=== PATIENT | female | born 1935 | race Caucasian/White ===

== ENCOUNTER 2016-10-28 09:35 | Day surgery (SDC) | payer MEDICARE, BC ==
--- NOTE | 2016-10-27 13:19 | HISTORY AND PHYSICAL E ---
History and Physical NAME: ZACHARY OVALLE : 1935 AGE: 81Y ADMITTED: 10/28/2016 ROOM: CHIEF COMPLAINT: Dysphagia, weight loss. An 81-year-old female presents with dysphagia, weight loss, upper abdominal pain. SOCIAL HISTORY: The patient is . She does not smoke, does not drink. She did have an upper scope in 2010. SURGERIES: Appendectomy, cholecystectomy, spinal fusion C5-C6, surgery on left knee, cataracts. REVIEW OF SYSTEMS: HEENT: Cataracts bilaterally. Respiratory: Shortness of breath. Cardiac: Hypertension. Endocrine: Hypothyroid. GI: Dysphagia and reflux, abdominal pain. Oncology/Hematology: Negative. Musculoskeletal: Degenerative joint disease. FAMILY HISTORY: Father ; had heart disease. Mom had diabetes, cardiac disease. EXAMINATION: Pleasant 81-year-old female. Blood pressure 150/80, pulse 80, respirations 18, temperature 98. Weight 167. HEENT: Normal. Abdomen soft. Neurologic exam negative. MEDICATIONS: Aspirin, Cathleen, Tylenol. Micardis, hydrochlorothiazide, fish oil, pantoprazole. CONCLUSION: Dysphagia. PLAN: Upper scope. Reviewing records shows she did have colonoscopy in 2010. Cecal polyp hyperplastic. Patient presented at this time regarding dysphagia. DICTATING PHYSICIAN: HANNAH MCLAUGHLIN M.D. [id number] Y#: [id number] ID: [id number] JOB#: [id number] ACCT: [id number] cc:HANNAH MCLAUGHLIN M.D. >
[~2016-10-28 09:35] MED LIST: EPINEPHRINE INJ 1 MG/10 ML DISP.SYRIN ONE; FENTANYL CITRATE INJ/PF 100 MCG/2 ML AMPUL ONE; FLUMAZENIL INJ 0.5 MG/5 ML VIAL IV ONE; GLYCOPYRROLATE INJ 0.4 MG/2 ML VIAL ONE; MIDAZOLAM 2 MG/2 ML INJ ONE; NALOXONE HCL INJ/PF 0.4 MG/1 ML SDV ONE; ONDANSETRON HCL INJ/PF 4 MG/2 ML SDV ONE
[2016-10-28 11:26] LABS: IRON 57.5 ug/dL (37-170)
[2016-10-28 11:38] LABS: ABSOLUTE BASOPHILS # (AUTO) 0.1 10^3/uL (0.0-0.2); ABSOLUTE EOSINOPHILS # (AUTO) 0.4 10^3/uL (0.0-0.6); ABSOLUTE LYMPHOCYTES (AUTO) 1.3 10^3/uL (0.5-4.7); ABSOLUTE MONOCYTES (AUTO) 0.6 10^3/uL (0.1-1.4); ABSOLUTE NEUT (AUTO) 5.9 10^3/uL (1.7-8.2); BASOPHILS % (AUTO) 0.6 % (0-2); EOSINOPHILS % (AUTO) 5.4 % (0-6); HEMOGLOBIN 11.5 g/dL (12.0-15.5); HGB HCT DIFFERENCE 1.5; LYMPHOCYTES % (AUTO) 15.6 % (13-45); MEAN CORPUSCULAR HEMOGLOBIN 30.6 pg (27.0-33.4); MEAN CORPUSCULAR HGB CONC 34.7 g/dL (32.0-36.0); MEAN CORPUSCULAR VOLUME 88 fl (80-97); MONOCYTES % (AUTO) 6.7 % (3-13); RED BLOOD COUNT 3.74 10^6/uL (3.72-5.28); RED CELL DISTRIBUTION WIDTH 12.7 % (11.5-14.0); SEGMENTED NEUTROPHILS % (AUTO) 71.7 % (42-78); WHITE BLOOD COUNT 8.2 10^3/uL (4.0-10.5)
[2016-10-28 12:00] VITALS: BP 130/47
[2016-10-28 12:18] LABS: ERYTHROCYTE SEDIMENTATION RATE 21 mm/hr (0-30)
[2016-10-28 12:43] LABS: FERRITIN 33.2 ng/mL (11.1-264.0)
--- NOTE | 2016-10-28 15:04 | DISCHARGE SUMMARY E ---
Discharge Summary NAME: ZACHARY OVALLE : 1935 AGE: 81Y ADMITTED: 10/28/2016 DISCHARGED: 10/28/2016 PROCEDURE: EGD, biopsy. HISTORY: The patient is known to me. She did have a colonoscopy showing benign polyps, no evidence of malignancy. She presented now with dysphagia and reflux burning in her throat. She is 81 and complaining of dysphagia and weight loss, upper abdominal pain. Does not smoke. The patient did have a colonoscopy in 2010 shows benign hypoplastic polyp. DISCHARGE PLAN: Continue pantoprazole, Protonix. Hold aspirin 5 days. Baseline CBC, iron and B12 and ferritin. The patient is to see us in the office in the next few days. DICTATING PHYSICIAN: HANNAH MCLAUGHLIN M.D. [id number] PHY#: [id number] ID: [id number] JOB#: [id number] ACCT: [id number] cc:MERY PADRON MAHMOUD M.D. >
--- NOTE | 2016-10-28 15:06 | OPERATIVE REPORT E ---
Operative Report NAME: ZACHARY OVALLE : 1935 AGE: 81Y DATE OF SURGERY: 10/28/2016 ROOM: PREOPERATIVE DIAGNOSES: 1. Dysphagia. 2. Gastroesophageal reflux disease. POSTOPERATIVE DIAGNOSES: 1. Mild esophagitis. 2. Mild gastritis. 3. Mild duodenitis. 4. No stricture, no cancer. PROCEDURE: Esophagoscopy, gastroscopy, duodenoscopy. SURGEON: HANNAH MCLAUGHLIN M.D. ANESTHESIA: Versed 2 mg and Fentanyl 25 mcg. TISSUE REMOVED OR ALTERED: Gastric biopsy for H. pylori. DESCRIPTION OF PROCEDURE: The baby scope was passed under guided vision with no difficulties. Junction at 36 cm, no stricture, no hernia, no cancer. Mild esophagitis. Gastroscopy: Some scarring in the antrum, mild erythema, mild gastritis. No ulcers. Biopsy obtained for H. pylori, nice clotting. Duodenoscopy: The bulb shows mild duodenitis, no ulcers, descending duodenum normal. CONCLUSIONS: 1. No ulcers, no cancer. 2. Mild esophagitis. 3. Mild gastritis. 4. Mild duodenitis. 5. GE junction at 35 cm. PLAN: 1. Hold aspirin for 5 days. 2. Awaiting biopsy results. 3. Continue PPI. 4. Assurance. 5. The patient is to see us in the office in the next few days. 6. Continue pantoprazole and Tylenol No. 3. 7. Patient to have baseline CBC. We will check, her B12 level, iron and ferritin. DICTATING PHYSICIAN: HANNAH MCLAUGHLIN M.D. [id number] PHY#: [id number] ID: [id number] JOB#: [id number] ACCT: [id number] cc:MERY PADRON, HANNAH Bourne >
== END 2016-10-28 11:50 | disposition home or self-care (01) ==
LOC: END 09:35
PROVIDERS: ATTEND Specialist
PROC: 0DB68ZX Excision of Stomach, Via Natural or Artificial Opening Endoscopic, Diagnostic (ICD-10-PCS; principal; 2016-10-28 10:00)
DX: K31.9 Disease of stomach and duodenum, unspecified (principal); K21.0 Gastro-esophageal reflux disease with esophagitis; D50.9 Iron deficiency anemia, unspecified; I10 Essential (primary) hypertension; E03.9 Hypothyroidism, unspecified; M19.90 Unspecified osteoarthritis, unspecified site; R06.02 Shortness of breath; R63.4 Abnormal weight loss; Z79.899 Other long term (current) drug therapy; Z79.82 Long term (current) use of aspirin; Z68.30 Body mass index [BMI] 30.0-30.9, adult
CPT/HCPCS: 43239; 36415; 82607; 82728; 83540; 85025; 85652; 88342 ×2; 88305 ×2; J2250; J3010; J2405; J0171; J2310; J3490

== ENCOUNTER 2017-03-31 13:41 | Emergency (ER) | payer MEDICARE, BC ==
--- NOTE | 2017-03-31 15:29 | RADIOLOGY REPORT (SQ) ---
EXAM DESCRIPTION: CHEST PA/LAT COMPLETED DATE/TIME: 03/31/2017 3:21 pm REASON FOR STUDY: fall/pain COMPARISON: 01/22/2012. EXAM PARAMETERS: NUMBER OF VIEWS: two views TECHNIQUE: Digital Frontal and Lateral radiographic views of the chest acquired. RADIATION DOSE: NA LIMITATIONS: none FINDINGS: LUNGS AND PLEURA: No opacities, masses or pneumothorax. No pleural effusion. MEDIASTINUM AND HILAR STRUCTURES: No masses or contour abnormalities. HEART AND VASCULAR STRUCTURES: Heart normal size. No evidence for failure. BONES: No acute findings. Degenerative changes in the spine and shoulders. HARDWARE: Hardware in the cervical spine and right shoulder. OTHER: No other significant finding. IMPRESSION: NO SIGNIFICANT RADIOGRAPHIC FINDING IN THE CHEST. TECHNICAL DOCUMENTATION: JOB ID: [id number] [employer] All Rights Reserved
--- NOTE | 2017-03-31 15:30 | RADIOLOGY REPORT (SQ) ---
EXAM DESCRIPTION: TIBIA FIBULA LEFT COMPLETED DATE/TIME: 03/31/2017 3:21 pm REASON FOR STUDY: fall/pain COMPARISON: None. NUMBER OF VIEWS: Two views. TECHNIQUE: Two radiographic images acquired of the left tibia and fibula to include the knee and ank le in at least one projection. LIMITATIONS: None. FINDINGS: MINERALIZATION: Normal. BONES: No acute fracture or dislocation. No worrisome bone lesions. SOFT TISSUES: No obvious swelling or foreign body. OTHER: No other significant finding. IMPRESSION: NEGATIVE STUDY OF THE LEFT TIBIA AND FIBULA. NO RADIOGRAPHIC EVIDENCE OF ACUTE INJURY. TECHNICAL DOCUMENTATION: JOB ID: [id number] [employer]- All Rights Reserved
--- NOTE | 2017-03-31 15:44 | ER Document Report ---
ED General - General Chief Complaint: Rib Pain Stated Complaint: FALL Time Seen by Provider: 03/31/17 14:54 Mode of Arrival: Ambulatory Information source: Patient Notes: Patient had a fall yesterday in which she hit her left chest on a bench. She also hit her left leg on the bench. She states she lost her balance walking down some steps. Constant. It is worse with movement and better with rest. It is sharp. It does radiate across her chest. The pain is moderate to severe. No shortness of breath. No abdominal pain. No vomiting or diarrhea. No loss of consciousness TRAVEL OUTSIDE OF THE [place] IN LAST 30 DAYS: No COUNTRY TRAVELED TO/FROM: [facility] - Related Data Allergies/Adverse Reactions: rofecoxib [From Vioxx] Allergy (Mild, Verified 03/31/17 14:40) Nausea Past Medical History - General Information source: Patient - Social History Smoking Status: Never Smoker Chew tobacco use (# tins/day): No Frequency of alcohol use: None Drug Abuse: None Family History: Reviewed & Not Pertinent Patient has suicidal ideation: No Patient has homicidal ideation: No - Past Medical History Cardiac Medical History: Reports: Hx Hypertension Denies: Hx Coronary Artery Disease, Hx Heart Attack Pulmonary Medical History: Reports: Hx Asthma - SOB ON EXERTION Denies: Hx Bronchitis, Hx COPD, Hx Pneumonia Neurological Medical History: Denies: Hx Cerebrovascular Accident, Hx Seizures Renal/ Medical History: Denies: Hx Peritoneal Dialysis Musculoskeltal Medical History: Reports Hx Arthritis Past Surgical History: Reports: Hx Appendectomy, Hx Cholecystectomy, Hx Hysterectomy, Hx Orthopedic Surgery - Immunizations Immunizations up to date: Yes Hx Diphtheria, Pertussis, Tetanus Vaccination: Yes Review of Systems - Review of Systems Constitutional: denies: Chills, Fever Cardiovascular: Chest pain. denies: Palpitations Respiratory: denies: Cough, Short of breath Gastrointestinal: denies: Abdominal pain, Vomiting -: Yes All other systems reviewed and negative Physical Exam - Vital signs Vitals: Temp Pulse Resp BP Pulse Ox 97.5 F 57 L 16 124/62 93 03/31/17 14:00 03/31/17 14:00 03/31/17 14:00 03/31/17 14:00 03/31/17 14:00 Interpretation: Bradycardic - General General appearance: Appears well, Alert - HEENT Head: Normocephalic, Atraumatic Eyes: Normal Pupils: PERRL - Respiratory Respiratory status: No respiratory distress Chest status: Tender - left chest wall tender. no crepitus Breath sounds: Normal Chest palpation: No: Flail segment, [place] frothy sputum - Cardiovascular Rhythm: Regular Heart sounds: Normal auscultation Murmur: No - Abdominal Inspection: Normal Distension: No distension Bowel sounds: Normal Tenderness: Nontender Organomegaly: No organomegaly - Back Back: Normal, Nontender - Extremities General upper extremity: Normal inspection, Nontender, Normal color, Normal ROM , Normal temperature General lower extremity: Tender - left leg with tender ecchysmosis, Normal ROM, Normal temperature, Normal weight bearing. No: Octavio's sign - Neurological Neuro grossly intact: Yes Cognition: Normal Orientation: AAOx4 Emilie Coma Scale Eye Opening: Spontaneous Emilie Coma Scale Verbal: Oriented Raymond Coma Scale Motor: Obeys Commands Raymond Coma Scale Total: 15 Speech: Normal Motor strength normal: LUE, RUE, LLE, RLE Sensory: Normal - Psychological Associated symptoms: Normal affect, Normal mood - Skin Skin Temperature: Warm Skin Moisture: Dry Skin Color: Normal Course - Vital Signs Vital signs: Temp Pulse Resp BP Pulse Ox 97.5 F 57 L 16 124/62 93 03/31/17 14:00 03/31/17 14:00 03/31/17 14:00 03/31/17 14:00 03/31/17 14:00 - Diagnostic Test Radiology reviewed: Image reviewed, Reports reviewed - Patient has negative x- rays of the chest and left leg. Discharge - Discharge Clinical Impression: Fall, Chest wall contusion, Contusion of left leg Condition: Stable Disposition: HOME, SELF-CARE Instructions: Chest Wall Pain ([facility]), Contusion ([facility]) Additional Instructions: Please follow-up with your primary care physician as soon as possible Prescriptions: Hydrocodone/Acetaminophen [Hillister 5-325 mg Tablet] 1 tab PO Q8 PRN #10 tablet PRN Reason:
[2017-03-31 16:04] VITALS: BP 113/57
== END 2017-03-31 16:04 | disposition home or self-care (01) ==
LOC: ER 13:41
DX: S20.219A Contusion of unspecified front wall of thorax, initial encounter (principal); S80.12XA Contusion of left lower leg, initial encounter; W10.9XXA Fall (on) (from) unspecified stairs and steps, initial encounter; I10 Essential (primary) hypertension; Z90.49 Acquired absence of other specified parts of digestive tract; Z90.710 Acquired absence of both cervix and uterus
CPT/HCPCS: 71020; 99283

== ENCOUNTER → 2017-06-18 | Outpatient (CLI) | payer MEDICARE, BC ==
--- NOTE | 2017-06-18 09:09 | WOMENS IMAGING REPORT ---
EXAM DESCRIPTION: BONE DENSITY HIP/SPINE COMPLETED DATE/TIME: 06/18/2017 8:49 am REASON FOR STUDY: MENOPAUSAL STATE; Z78.0 Z12.31 ENCNTR SCREEN MAMMOGRAM FOR MALIGNANT NEOPLASM OF ZARI Z78.0 ASYMPTOMATIC MENOPAUSAL STATE COMPARISON: 05/31/2013. TECHNIQUE: Dual-Energy X-ray Absorptiometry (DEXA) of the AP Spine and Hip. LIMITATIONS: None. FINDINGS: LUMBAR SPINE: The bone mineral density (BMD) measured from L1-L4 in the AP projection correlates with a T-score of 1.7, which is normal as defined by the World Health Organization. HIP: The bone mineral density (BMD) measured in the left hip correlates with a T-score of -1.3, which is o steopenia as defined by the World Health Organization. IMPRESSION: 1. LUMBAR SPINE: NORMAL. 2. HIP: OSTEOPENIA. COMMENT: The World Health Organization defines low BMD as follows: T-score: Normal: Greater than -1.0 Osteopenia: Between -1.0 and -2.5 Osteoporosis: Less than -2.5 without fractures Established osteoporosis: Less than -2.5 with fractures In general, you may wish to consider: Diagnosis Treatment Follow-up DEXA Normal BMD Prevention 2-3 years Osteopenia Prevention/Therapy 1-2 years Osteoporosis Therapy Yearly TECHNICAL DOCUMENTATION: JOB ID: [id number]- All Rights Reserved
--- NOTE | 2017-06-18 10:31 | WOMENS IMAGING REPORT ---
EXAM DESCRIPTION: BILAT SCREENING MAMMO W/CAD COMPLETED DATE/TIME: 06/18/2017 8:49 am REASON FOR STUDY: ROUTINE SCREENING; Z12.31 Z12.31 ENCNTR SCREEN MAMMOGRAM FOR MALIGNANT NEOPLASM O F ZARI Z78.0 ASYMPTOMATIC MENOPAUSAL STATE COMPARISON: 06/16/2016 and 06/14/2015. TECHNIQUE: Standard craniocaudal and mediolateral oblique views of each breast recorded using digita l acquisition. LIMITATIONS: None. FINDINGS: No masses, calcifications or architectural distortion. No areas of suspicion. Read with the assistance of CAD. .[facility] - R2 Cenova Version 1.3 .[facility] - R2 Cenova Version 1.3 .[facility] - R2 Cenova Version 2.4 .[facility] - R2 Cenova Version 2.4 .[facility] - R2 Laboratory Cureman Version 9.2 IMPRESSION: NORMAL MAMMOGRAM. BIRADS 1. BREAST DENSITY: b. There are scattered areas of fibroglandular density. BIRAD: 1 NEGATIVE RECOMMENDATION: ROUTINE SCREENING COMMENT: The patient has been notified of the results by letter per SA requirements. Additional no tification policies are in place for contacting patient with suspicious or incomplete findings. Quality ID #[id number]: The [employer] recommends an annual screening mammogram for women aged 40 years or over. This facility utilizes a reminder system to ensure that all patients receive reminder letters, and/or direct phone calls for appointments. This includes reminders for routine scr eening mammograms, diagnostic mammograms, or other Breast Imaging Interventions when appropriate. Th is patient will be placed in the appropriate reminder system. The [employer] (ACR) has developed recommendations for screening MRI of the breast s in certain patient populations, to be used in conjunction with mammography. Breast MRI surveillanc e may be appropriate for women with more than 20% lifetime risk of developing breast cancer as deter mined by genetic testing, significant family history of the disease, or history of mantle radiation f or Hodgkins Disease. ACR Practice Guidelines 2008. TECHNICAL DOCUMENTATION: FINDING NUMBER: (1) ASSESSMENT: (1) JOB ID: [id number] [employer]- All Rights Reserved
== END ==
LOC: WI 08:02
PROVIDERS: ATTEND Nurse Practitioner
DX: Z12.31 Encounter for screening mammogram for malignant neoplasm of breast (principal); Z78.0 Asymptomatic menopausal state; M85.88 Other specified disorders of bone density and structure, other site
CPT/HCPCS: 77080; G0202; 77067

== ENCOUNTER → 2017-11-04 | Outpatient (CLI) | payer MEDICARE, BC ==
--- NOTE | 2017-11-04 10:38 | RADIOLOGY REPORT (SQ) ---
EXAM DESCRIPTION: CT ABDOMEN WITH IV ORAL CONT COMPLETED DATE/TIME: 11/04/2017 8:57 am REASON FOR STUDY: LUQ PAIN (R10.12), ABD TENDERNESS LUQ (R10.812) R10.12 LEFT UPPER QUADRANT PAIN R 10.812 LEFT UPPER QUADRANT ABDOMINAL TENDERNESS COMPARISON: None. TECHNIQUE: CT scan of the abdomen performed with intravenous and with oral contrast using helical sc anning technique with dynamic intravenous contrast injection. Images reviewed with lung, soft tissue, and bone windows. Reconstructed coronal and sagittal MPR images reviewed. Delayed images for evaluat ion of the urinary system also acquired and evaluated. All images stored on PACS. All CT scanners at this facility use dose modulation, iterative reconstruc tion, and/or weight based dosing when appropriate to reduce radiation dose to as low as reasonably ac hievable (ALARA). [facility]: Dose Right [facility]: CareDose [facility]: Dose Right [facility]: Teradose 4D [facility]: [employer] CONTRAST TYPE AND DOSE: contrast/concentration: Isovue 370.00 mg/ml; Total Contrast Delivered: 78.0 ml; Total Saline Delivered: 67.0 ml RENAL FUNCTION: Creatinine 0.7 RADIATION DOSE: CT Rad equipment meets quality standard of care and radiation dose reduction techniq ues were employed. CTDIvol: 6.3 - 7.1 mGy. DLP: 427 mGy-cm. . LIMITATIONS: None. FINDINGS: LOWER CHEST: Cardiomegaly. LIVER: Normal size. No masses. No dilated ducts. SPLEEN: Normal size. No focal lesions. PANCREAS: Atrophy. GALLBLADDER: Surgically absent. ADRENAL GLANDS: Thickening left gland. No definitive mass. RIGHT KIDNEY AND URETER: No solid masses. No significant calcifications. No hydronephrosis or hyd roureter. LEFT KIDNEY AND URETER: Subcentimeter exophytic lesion upper pole too small to characterize. No sig nificant calcifications. No hydronephrosis or hydroureter. AORTA AND VESSELS: No aneurysm. RETROPERITONEUM: No retroperitoneal adenopathy, hemorrhage or masses. BOWEL AND PERITONEAL CAVITY: No masses or inflammatory changes. No free fluid or peritoneal masses. APPENDIX: Surgically absent. ABDOMINAL WALL: No masses. No hernias. BONES: No acute findings. OTHER: No other significant finding. IMPRESSION: No acute findings in the abdomen. TECHNICAL DOCUMENTATION: JOB ID: [id number] Quality ID # [id number]: Final reports with documentation of one or more dose reduction techniques (e.g., Au tomated exposure control, adjustment of the mA and/or kV according to patient size, use of iterative reconstruction technique) 2010 [employer]- All Rights Reserved Reading location - IP/workstation name: [email or web address]
== END ==
LOC: RAD 08:05
PROVIDERS: ATTEND Internal Medicine Gastroenterology
DX: R10.12 Left upper quadrant pain (principal); R10.812 Left upper quadrant abdominal tenderness
CPT/HCPCS: 74160; 82565

== ENCOUNTER → 2018-06-21 | Outpatient (CLI) | payer MEDICARE, BC ==
--- NOTE | 2018-06-21 15:46 | WOMENS IMAGING REPORT ---
EXAM DESCRIPTION: BILAT SCREENING MAMMO W/CAD COMPLETED DATE/TIME: 06/21/2018 2:58 pm REASON FOR STUDY: SCREENING MAMMO Z12.31 ENCNTR SCREEN MAMMOGRAM FOR MALIGNANT NEOPLASM OF ZARI COMPARISON: Multiple since 2008 TECHNIQUE: Standard craniocaudal and mediolateral oblique views of each breast recorded using digita l acquisition. LIMITATIONS: None. FINDINGS: No masses, calcifications or architectural distortion. No areas of suspicion. Read with the assistance of CAD. .[facility] - R2 Cenova Version 1.3 .[facility] - R2 Cenova Version 1.3 .[facility] - R2 Cenova Version 2.4 .[facility] - R2 Cenova Version 2.4 .[facility] - R2 Director Data Version 9.2 IMPRESSION: NORMAL MAMMOGRAM. BIRADS 1. BREAST DENSITY: b. There are scattered areas of fibroglandular density. BIRAD: 1 NEGATIVE RECOMMENDATION: ROUTINE SCREENING Please continue bilateral screening mammography/tomosynthesis in June 2019. COMMENT: The patient has been notified of the results by letter per SA requirements. Additional no tification policies are in place for contacting patient with suspicious or incomplete findings. Quality ID #225: The [employer] recommends an annual screening mammogram for women aged 40 years or over. This facility utilizes a reminder system to ensure that all patients receive reminder letters, and/or direct phone calls for appointments. This includes reminders for routine scr eening mammograms, diagnostic mammograms, or other Breast Imaging Interventions when appropriate. Th is patient will be placed in the appropriate reminder system. The [employer] (ACR) has developed recommendations for screening MRI of the breast s in certain patient populations, to be used in conjunction with mammography. Breast MRI surveillanc e may be appropriate for women with more than 20% lifetime risk of developing breast cancer as deter mined by genetic testing, significant family history of the disease, or history of mantle radiation f or Hodgkins Disease. ACR Practice Guidelines 2008. TECHNICAL DOCUMENTATION: FINDING NUMBER: (1) ASSESSMENT: (1) JOB ID: [id number] [employer]- All Rights Reserved Reading location - IP/workstation name: [email or web address]
== END ==
LOC: WI 14:07
PROVIDERS: ATTEND Nurse Practitioner
DX: Z12.31 Encounter for screening mammogram for malignant neoplasm of breast (principal)
CPT/HCPCS: 77067

== ENCOUNTER → 2019-06-22 | Outpatient (CLI) | payer MEDICARE, BC ==
--- NOTE | 2019-06-22 13:42 | WOMENS IMAGING REPORT ---
EXAM DESCRIPTION: BONE DENSITY HIP/SPINE COMPLETED DATE/TIME: 06/22/2019 1:24 pm REASON FOR STUDY: Z78.0 BONE DENSITY Z78.0 ASYMPTOMATIC MENOPAUSAL STATE Z12.31 ENCNTR SCREEN MAMM OGRAM FOR MALIGNANT NEOPLASM OF ZARI COMPARISON: 2003, 2012, 2016 TECHNIQUE: Dual-Energy X-ray Absorptiometry (DEXA) of the AP Spine and Hip. LIMITATIONS: None. FINDINGS: LUMBAR SPINE: The bone mineral density (BMD) measured from L1-L4 in the AP projection correlates with a T-score of +1.7, which is normal as defined by the World Health Organization. BMD Change vs Baseline: No significant change since baseline assessment HIP: The bone mineral density (BMD) measured in the left total hip correlates with a T-score of -0.4, whic h is normal as defined by the World Health Organization. BMD Change vs Baseline: 14% decline in bone density since 2004, 9% decline in bone density since 7 10 year Fracture Risk Assessment: Major Osteoporotic Fracture: Not available. Hip Fracture: Not available. IMPRESSION: 1. LUMBAR SPINE WHO CLASSIFICATION: Normal 2. HIP WHO CLASSIFICATION: Normal OVERALL ASSESSMENT: WHO CLASSIFICATION: Normal COMMENT: The World Health Organization defines low BMD as follows: T-score: Normal: Greater than -1.0 Osteopenia: Between -1.0 and -2.5 Osteoporosis: Less than -2.5 without fractures Established osteoporosis: Less than -2.5 with fractures In general, you may wish to consider: Diagnosis Treatment Follow-up DEXA Normal BMD Prevention 2-3 years Osteopenia Prevention/Therapy 1-2 years Osteoporosis Therapy Yearly TECHNICAL DOCUMENTATION: JOB ID: [id number] [employer]- All Rights Reserved Reading location - IP/workstation name: [email or web address]
--- NOTE | 2019-06-22 13:45 | WOMENS IMAGING REPORT ---
EXAM DESCRIPTION: BILAT SCREENING MAMMO W/CAD COMPLETED DATE/TIME: 06/22/2019 1:24 pm REASON FOR STUDY: Z12.31 BILATERAL SCREENING MAMMOGRAM Z78.0 ASYMPTOMATIC MENOPAUSAL STATE Z12.31 ENCNTR SCREEN MAMMOGRAM FOR MALIGNANT NEOPLASM OF ZARI COMPARISON: [id number] EXAM PARAMETERS: Standard craniocaudal and mediolateral oblique views of each breast recorded using digital acquisition. Read with the assistance of CAD. .[facility] - [email or web address] Ignition Specialist Version 9.2 LIMITATIONS: None. FINDINGS: No suspicious masses, suspicious calcifications or architectural distortion. No areas of c oncern. IMPRESSION: Negative MAMMOGRAM. BIRADS 1 BREAST DENSITY: b. There are scattered areas of fibroglandular density. BIRAD: ASSESSMENT: 1 NEGATIVE RECOMMENDATION: ROUTINE SCREENING COMMENT: The patient has been notified of the results by letter per MQSA requirements. Additional no tification policies are in place for contacting patient with suspicious or incomplete findings. Quality ID #[id number]: The [employer] recommends an annual screening mammogram for women aged 40 years or over. This facility utilizes a reminder system to ensure that all patients receive reminder letters, and/or direct phone calls for appointments. This includes reminders for routine scr eening mammograms, diagnostic mammograms, or other Breast Imaging Interventions when appropriate. Th is patient will be placed in the appropriate reminder system. TECHNICAL DOCUMENTATION: FINDING NUMBER: (1) ASSESSMENT: (1) JOB ID: [id number] [employer]- All Rights Reserved Reading location - IP/workstation name: [email or web address]
== END ==
LOC: WI 12:40
PROVIDERS: ATTEND Nurse Practitioner
DX: Z12.31 Encounter for screening mammogram for malignant neoplasm of breast (principal); Z78.0 Asymptomatic menopausal state
CPT/HCPCS: 77067; 77080

== ENCOUNTER 2019-09-08 11:29 | Inpatient (IN) | payer MEDICARE, BC ==
[2019-09-08 11:48] LABS: ABSOLUTE EOSINOPHILS # (AUTO) 0.1 10^3/uL (0.0-0.6); ABSOLUTE LYMPHOCYTES (AUTO) 1.1 10^3/uL (0.5-4.7); ABSOLUTE NEUT (AUTO) 12.5 10^3/uL (1.7-8.2); BASOPHILS % (AUTO) 0.3 % (0-2); EOSINOPHILS % (AUTO) 0.4 % (0-6); HEMATOCRIT 39.2 % (36.0-47.0); HEMOGLOBIN 13.3 g/dL (12.0-15.5); LYMPHOCYTES % (AUTO) 7.7 % (13-45); MEAN CORPUSCULAR HEMOGLOBIN 30.1 pg (27.0-33.4); MEAN CORPUSCULAR HGB CONC 33.9 g/dL (32.0-36.0); MEAN CORPUSCULAR VOLUME 89 fl (80-97); MONOCYTES % (AUTO) 6.8 % (3-13); PLATELET COUNT 277 10^3/uL (150-450); RED BLOOD COUNT 4.41 10^6/uL (3.72-5.28); RED CELL DISTRIBUTION WIDTH 13.3 % (11.5-14.0); SEGMENTED NEUTROPHILS % (AUTO) 84.8 % (42-78); TOTAL CELLS COUNTED % (AUTO) 100 %; WHITE BLOOD COUNT 14.8 10^3/uL (4.0-10.5)
[2019-09-08 12:00] LABS: INTERNATIONAL RATION (INR) 0.88; PROTHROMBIN TIME 11.9 SEC (11.4-15.4)
[2019-09-08 12:17] LABS: ALBUMIN 4.1 g/dL (3.5-5.0); ALKALINE PHOSPHATASE 137 U/L (38-126); ANION GAP 10 (5-19); ASPARTATE AMINO TRANSFERASE 37 U/L (14-36); BILIRUBIN,TOTAL 0.4 mg/dL (0.2-1.3); BLOOD UREA NITROGEN 17 mg/dL (7-20); CALCIUM 9.2 mg/dL (8.4-10.2); CARBON DIOXIDE 30 mmol/L (22-30); CHLORIDE 88 mmol/L (98-107); GLUCOSE 156 mg/dL (75-110); POTASSIUM 3.6 mmol/L (3.6-5.0); TOTAL PROTEIN 7.2 g/dL (6.3-8.2)
--- NOTE | 2019-09-08 12:31 | RADIOLOGY REPORT (SQ) ---
EXAM DESCRIPTION: CHEST SINGLE VIEW COMPLETED DATE/TIME: 09/08/2019 12:17 pm REASON FOR STUDY: bed 17 sepsis protocol COMPARISON: PA and lateral views of the chest from 03/31/2017. EXAM PARAMETERS: NUMBER OF VIEWS: One view. TECHNIQUE: An AP view of the chest was obtained. RADIATION DOSE: NA LIMITATIONS: None. FINDINGS: LUNGS AND PLEURA: No consolidation, pleural effusion or pneumothorax. MEDIASTINUM AND HILAR STRUCTURES: No mediastinal or hilar contour abnormality. HEART AND VASCULAR STRUCTURES: The cardiac silhouette and pulmonary vasculature are within normal rodrigues its. BONES: No acute findings. HARDWARE: ACDF hardware and orthopedic screws in the proximal right humerus. OTHER: No other finding. IMPRESSION: No acute cardiopulmonary process. TECHNICAL DOCUMENTATION: JOB ID: [id number] 2010 [employer]- All Rights Reserved Reading location - IP/workstation name: [email or web address]
[2019-09-08 12:47] LABS: VENOUS BLOOD BASE EXCESS 2.6 mmol/L; VENOUS BLOOD HCO3 27.6 mmol/L (20-32); VENOUS BLOOD PCO2 43.9 mmHg (35-63); VENOUS BLOOD PH 7.42 (7.30-7.42)
[2019-09-08] MEDS ORDERED: NORMAL SALINE 1000 ML 1,000 ML IV ONE ×2 (13:24→16:04)
[2019-09-08 13:56] LABS: APPEARANCE,URINE SLIGHTLY-CLOUDY; BILIRUBIN,URINE NEGATIVE (NEGATIVE); COLOR,URINE YELLOW; GLUCOSE, URINE NEGATIVE (NEGATIVE); KETONES,URINE TRACE mg/dL (NEGATIVE); LEUKOCYTE ESTERASE,URINE NEGATIVE (NEGATIVE); NITRITE,URINE POSITIVE (NEGATIVE); PROTEIN,URINE NEGATIVE (NEGATIVE); URINE SPECIFIC GRAVITY 1.014; UROBILINOGEN,URINE NEGATIVE mg/dL (<2.0)
[2019-09-08] MEDS ORDERED: CEFTRIAXONE 1 GM/D5W RTU 50 ML IV ONE (16:04)
--- NOTE | 2019-09-08 16:25 | ER Document Report ---
ED General - General Chief Complaint: General Weakness Stated Complaint: FALL Time Seen by Provider: 09/08/19 15:15 Primary Care Provider: MERY PADRON FNP [Primary Care Provider] - Follow up as needed TRAVEL OUTSIDE OF THE [place] IN LAST 30 DAYS: No - HPI Notes: Patient is an 84-year-old female who presents to the emergency department for evaluation. She states that she has not been feeling well for the last several days. She is had a minimal cough. She has been feeling weak. She is been taking her regular medications as prescribed. She states that she was trying to call her doctor to schedule an appointment and she had a near syncopal episode. She called 911 for further evaluation. She denies any chest pain. She is had no shortness of breath. She does complain of some urinary frequency. No fevers or chills to her knowledge. She is had some lower back pain since a fall in May. She is been referred on to physical therapy, but complains, "no one has even taken an x-ray." She denies any bowel or bladder incontinence, no saddle anesthesia, no focal numbness or weakness. - Related Data Allergies/Adverse Reactions: rofecoxib [From Vioxx] Allergy (Mild, Verified 03/31/17 14:40) Nausea Home Medications: Aspirin 81 mg daily, multivitamin daily, Cathleen 180 mg daily, Tylenol 3 as needed for pain, HCTZ 25 mg daily, Synthroid 50 mcg daily Past Medical History - General Information source: Patient, Relative - Social History Smoking Status: Never Smoker Family History: Reviewed & Not Pertinent Patient has suicidal ideation: No Patient has homicidal ideation: No - Past Medical History Cardiac Medical History: Reports: Hx Hypertension Denies: Hx Coronary Artery Disease, Hx Heart Attack Pulmonary Medical History: Reports: Hx Asthma - SOB ON EXERTION Denies: Hx Bronchitis, Hx COPD, Hx Pneumonia Neurological Medical History: Denies: Hx Cerebrovascular Accident, Hx Seizures Endocrine Medical History: Reports: Hx Hypothyroidism Renal/ Medical History: Denies: Hx Peritoneal Dialysis GI Medical History: Reports: Hx Gastroesophageal Reflux Disease Musculoskeletal Medical History: Reports Hx Arthritis Past Surgical History: Reports: Hx Appendectomy, Hx Cholecystectomy, Hx Hysterectomy, Hx Orthopedic Surgery - Rotator cuff, Other - Bladder reconstruction, bilateral cataracts - Immunizations Immunizations up to date: Yes Hx Diphtheria, Pertussis, Tetanus Vaccination: Yes Review of Systems - Review of Systems Constitutional: See HPI Cardiovascular: See HPI Genitourinary: See HPI -: Yes All other systems reviewed and negative Physical Exam - Vital signs Vitals: Temp Resp BP Pulse Ox 98 F 16 113/71 98 09/08/19 11:48 09/08/19 11:48 09/08/19 11:48 09/08/19 11:48 - Notes Notes: Vital signs reviewed, please refer to chart. Head is normocephalic, atraumatic. Pupils equal round, reactive to light. Neck is supple without meningismus. Heart is irregularly irregular, heart rate ranges from 85-120. Lungs are clear to auscultation bilaterally. Abdomen is soft, nontender, normoactive bowel sounds throughout. Extremities without cyanosis, clubbing. Posterior calves are nontender. Peripheral pulses are equal. Skin is warm and dry. She does have some diffuse erythema on the posterior left forearm, that she attributes to a topical cream she was using to help rid of age spots. Patient is awake, alert, neurological exam is nonfocal. Examination of the spine is no midline tenderness or step-off. She has paraspinal musculature tenderness throughout the lumbar spine. She has plus 4 out of 5 bilateral lower extremity strength with mildly diminished but symmetrical patellar and Achilles reflexes. Sensation is intact. Course - Re-evaluation Re-evalutation: 09/08/19 16:24 Patient presents to the emergency department for evaluation. She is placed on a monitor worker and had laboratory investigations as ordered. She is tachycardic, and her blood pressure is borderline low. She is given IV fluid resuscitation. She has a leukocytosis and findings consistent with a urinary tract infection. Her heart rhythm reveals atrial fibrillation/flutter. Her blood pressure, however, is borderline. I am concerned that this rapid response is more secondary to sepsis. I am not inclined to lower her heart rate at this time. She is given IV Rocephin. At her request, I did order x-rays of the lumbar spine. Plan will be to admit pending cultures, evaluation of her heart. Patient is stable at this time, we will continue to monitor. 09/08/19 17:53 Patient's heart rate varied between the 60s to the 120s, but her blood pressure remained stable. I did order a CT scan of her back which showed extensive arthritic changes, lumbar stenosis, but no acute fracture. Again she does have sepsis criteria, UTI, and new onset atrial fibrillation. I spoke with Dr. Yuan, he will admit the patient for further care. - Vital Signs Vital signs: Temp Pulse Resp BP Pulse Ox 98 F 25 H 124/64 100 09/08/19 11:48 09/08/19 15:01 09/08/19 15:01 09/08/19 15:01 - Laboratory Result Diagrams: 09/08/19 11:05 09/08/19 11:05 Laboratory results interpreted by me: 09/08/19 09/08/19 09/08/19 11:05 11:05 11:50 WBC 14.8 H Lymph % (Auto) 7.7 L Absolute Neuts (auto) 12.5 H Seg Neutrophils % 84.8 H Sodium 127.7 L Chloride 88 L Glucose 156 H Lactic Acid 2.4 H AST 37 H Alkaline Phosphatase 137 H Urine Ketones Urine Nitrite Urine Ascorbic Acid 09/08/19 11:50 WBC Lymph % (Auto) Absolute Neuts (auto) Seg Neutrophils % Sodium Chloride Glucose Lactic Acid AST Alkaline Phosphatase Urine Ketones TRACE H Urine Nitrite POSITIVE H Urine Ascorbic Acid 40 H - Diagnostic Test Radiology reviewed: Reports reviewed Radiology results interpreted by me: 09/08/19 17:54 Chest X-Ray 09/08/19 11:35 IMPRESSION: No acute cardiopulmonary process. 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 There is no acute fracture or malalignment of the lumbar spine. - EKG Interpretation by Me Additional EKG results interpreted by me: 09/08/19 16:26 Atrial flutter with a rate of 119 bpm. Normal axis and intervals. Nonspecific ST changes, but no acute changes concerning for ischemia or infarction. This is compared to prior EKG in patient's possession performed July 27, 2019 with significant change. Discharge - Discharge Clinical Impression: Atrial fibrillation and flutter, Hyponatremia Urinary tract infection Qualifiers: Urinary tract infection type: site unspecified Hematuria presence: without hematuria Qualified Code(s): N39.0 - Urinary tract infection, site not specified Sepsis Qualifiers: Sepsis type: sepsis due to unspecified organism Sepsis acute organ dysfunction status: without acute organ dysfunction Qualified Code(s): A41.9 - Sepsis, unspecified organism Condition: Stable Disposition: ADMITTED INPATIENT Admitting Provider: Lissy (Hospitalist) Unit Admitted: I[facility]U Referrals: MERY PADRON FNP [Primary Care Provider] - Follow up as needed
--- NOTE | 2019-09-08 17:20 | RADIOLOGY REPORT (SQ) ---
EXAM DESCRIPTION: CT LUMBAR SPINE WITHOUT COMPLETED DATE/TIME: 09/08/2019 4:46 pm REASON FOR STUDY: fall, low back pain COMPARISON: None. TECHNIQUE: Axial images acquired through the lumbar spine without intravenous contrast. Images revi ewed with lung, soft tissue and bone windows. Reconstructed coronal and sagittal MPR images reviewed . All images stored on PACS. All CT scanners at this facility use dose modulation, iterative reconstruction, and/or weight based d osing when appropriate to reduce radiation dose to as low as reasonably achievable (ALARA). [facility]: Dose Right [facility]: CareDose [facility]: Dose Right [facility]: Teradose 4D [facility]: [employer] RADIATION DOSE: DLP 68798.83 mGy cm LIMITATIONS: None. FINDINGS: SEGMENTATION: There are 5 lumbar-type vertebral bodies. There is no transitional anatomy at the lumbosacral junction ALIGNMENT: There is grade 1 retrolisthesis of L2 relative to L3, L3 relative to L4 and of L4 relative to L5. VERTEBRAL BODIES: The lumbar vertebral body heights are preserved. There is no fracture. DISCS: Evaluation of the spinal canal is limited due to the absence of intrathecal contrast. The int ervertebral discs from L1-L2 to L4-L5 are narrowed at L2-L3, L3-L4 there are varying degrees of moder ate to severe compression of the thecal sac and stenosis of the neuroforamina due to a combination of bulging discs, hypertrophy of ligamentum flavum and degeneration of the facet joints. PEDICLES, TRANSVERSE PROCESSES: Intact. FACETS, POSTERIOR ELEMENTS: Intact. HARDWARE: None in the spine. VISUALIZED RIBS: No fractures. SOFT TISSUES: No acute findings. OTHER: No other finding. 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 There is no acute fracture or malalignment of the lumbar spine. TECHNICAL DOCUMENTATION: JOB ID: [id number] Quality ID # [id number]: Final reports with documentation of one or more dose reduction techniques (e.g., Au tomated exposure control, adjustment of the mA and/or kV according to patient size, use of iterative reconstruction technique) 2010 [employer]- All Rights Reserved Reading location - IP/workstation name: [facility]CAR[facility]IN[facility]AST MED[facility] CENTERAlejandra
[2019-09-08] MEDS ORDERED: DILTIAZEM HCL/D5W 125 MG/125 ML RTUINJ IV PRN (18:15)
[2019-09-08] MEDS ORDERED: NORMAL SALINE 1000 ML 1,000 ML IV PRN (18:16)
--- NOTE | 2019-09-08 19:07 | PDOC H&P ---
History of Present Illness Admission Date/PCP: 09/08/19 18:05 DARNELL DANIEL Patient complains of: syncope History of Present Illness: ZACHARY OVALLE is a 84 year old female with a PMH of hypertension, GERD and hypothyroidism who is presenting with weakness and syncope. Patient reports that she has been feeling generally week the past few days along with urinary frequency. She says she was suspecting she had a UTI. She reports she was at her house earlier today when she felt dizzy and weak and slouched on the chair. She says she actually passed out briefly and was told by her son that she briefly lost consciousness. No seizure-like activity, urinary or bowel incontinence. In the ER, she was found to be in AFlutter in the 130-140s and occasionally goes into NSR. On encounter, she appears comfortable. Tele shows Aflutter in the 130s but she goes into normal sinus rhythm briefly and had runs of AFib as well. She denies chest pain but reports she did have shortness of breath earlier today. Past Medical History Cardiac Medical History: Reports: Hypertension Denies: Coronary Artery Disease, Myocardial Infarction Pulmonary Medical History: Reports: Asthma - SOB ON EXERTION Denies: Bronchitis, Chronic Obstructive Pulmonary Disease (COPD), Pneumonia Neurological Medical History: Denies: Seizures Endocrine Medical History: Reports: Hypothyroidism GI Medical History: Reports: Gastroesophageal Reflux Disease Musculoskeltal Medical History: Reports: Arthritis Hematology: Denies: Anemia Past Surgical History Past Surgical History: Reports: Appendectomy, Cholecystectomy, Hysterectomy, Orthopedic Surgery - Rotator cuff, Other - Bladder reconstruction, bilateral cataracts Social History Smoking Status: Never Smoker Family History Family History: Reviewed & Not Pertinent Parental Family History Reviewed: Yes - no premature CAD Children Family History Reviewed: No Sibling(s) Family History Reviewed.: No Medication/Allergy Home Medications: Cathleen 1 tab PO DAILY 05/06/11 Aspirin 81 mg PO DAILY 05/06/11 Hydrochlorothiazide 25 mg PO DAILY 05/06/11 Vitamins One A Day 1 tab PO DAILY 05/06/11 Latanoprost 1 gm MC DAILY 10/27/16 Acetaminophen with Codeine [Tylenol #3 Tablet] 1 each PO PRN PRN 10/28/16 Pantoprazole Sodium 40 mg PO DAILY 10/28/16 Hydrocodone/Acetaminophen [Vanderwagen 5-325 mg Tablet] 1 tab PO Q8 PRN #10 tablet 03/31/17 Allergies/Adverse Reactions: rofecoxib [From Vioxx] Allergy (Mild, Verified 03/31/17 14:40) Nausea Review of Systems All systems: reviewed and no additional remarkable complaints except as stated - as mentioned in HPI Physical Exam Vital Signs: Temp Pulse Resp BP Pulse Ox 98 F 25 H 124/64 100 09/08/19 11:48 09/08/19 15:01 09/08/19 15:01 09/08/19 15:01 Intake & Output 09/07/19 09/08/19 09/09/19 06:59 06:59 06:59 Intake Total 1999 Balance 1999 Weight 140 lb General appearance: PRESENT: no acute distress, well-developed, well-nourished Head exam: PRESENT: atraumatic, normocephalic Eye exam: PRESENT: conjunctiva pink, EOMI, PERRLA. ABSENT: scleral icterus Ear exam: PRESENT: normal external ear exam Mouth exam: PRESENT: moist, tongue midline Neck exam: ABSENT: carotid bruit, JVD, lymphadenopathy, thyromegaly Respiratory exam: PRESENT: clear to auscultation bill. ABSENT: rales, rhonchi, wheezes Cardiovascular exam: PRESENT: irregular rhythm, tachycardia Pulses: PRESENT: normal carotid pulses GI/Abdominal exam: PRESENT: normal bowel sounds, soft. ABSENT: distended, guarding, mass, organolmegaly, rebound, tenderness Rectal exam: PRESENT: deferred Extremities exam: PRESENT: full ROM. ABSENT: calf tenderness, clubbing, pedal edema Neurological exam: PRESENT: alert, awake, oriented to person, oriented to place, oriented to time, oriented to situation, CN II-XII grossly intact. ABSENT: motor sensory deficit Results Laboratory Results: 09/08/19 11:05 09/08/19 11:05 09/08/19 09/08/19 09/08/19 11:05 11:05 11:50 WBC 14.8 H RBC 4.41 Hgb 13.3 Hct 39.2 MCV 89 MCH 30.1 MCHC 33.9 RDW 13.3 Plt Count 277 Seg Neutrophils % 84.8 H VBG pH VBG pCO2 VBG HCO3 VBG Base Excess Sodium 127.7 L Potassium 3.6 Chloride 88 L Carbon Dioxide 30 Anion Gap 10 BUN 17 Creatinine 0.77 Est GFR ( Amer) > 60 Glucose 156 H Lactic Acid 2.4 H Calcium 9.2 Total Bilirubin 0.4 AST 37 H Alkaline Phosphatase 137 H Total Protein 7.2 Albumin 4.1 Urine Color Urine Appearance Urine pH Ur Specific Atkinson Urine Protein Urine Glucose (UA) Urine Ketones Urine Blood Urine Nitrite Ur Leukocyte Esterase Urine WBC (Auto) Urine RBC (Auto) 09/08/19 09/08/19 09/08/19 11:50 12:22 14:43 WBC RBC Hgb Hct MCV MCH MCHC RDW Plt Count Seg Neutrophils % VBG pH 7.42 VBG pCO2 43.9 VBG HCO3 27.6 VBG Base Excess 2.6 Sodium Potassium Chloride Carbon Dioxide Anion Gap BUN Creatinine Est GFR ( Amer) Glucose Lactic Acid 2.0 Calcium Total Bilirubin AST Alkaline Phosphatase Total Protein Albumin Urine Color YELLOW Urine Appearance SLIGHTLY-CLOUDY Urine pH 6.0 Ur Specific [place]kinson 1.014 Urine Protein NEGATIVE Urine Glucose (UA) NEGATIVE Urine Ketones TRACE H Urine Blood NEGATIVE Urine Nitrite POSITIVE H Ur Leukocyte Esterase NEGATIVE Urine WBC (Auto) 27 Urine RBC (Auto) 1 09/08/19 11:50 Troponin I < 0.012 Impressions: Chest X-Ray 09/08/19 11:35 IMPRESSION: No acute cardiopulmonary process. 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 There is no acute fracture or malalignment of the lumbar spine. Assessment and Plan - Diagnosis (1) Atrial fibrillation and flutter Is this a current diagnosis for this admission?: Yes Plan: Will start patient on cardizem drip at 2.5 mg/hr. Discussed risks and benefits of anticoagulation with patient and she expressed she is unsure about being started on anticoagulation and would rather take time to discuss this with her daughter. (2) Hyponatremia Is this a current diagnosis for this admission?: Yes Plan: Will start patient on normal saline. Check urine osm and urine Na as well. (3) Urinary tract infection Qualifiers: Urinary tract infection type: site unspecified Hematuria presence: without hematuria Qualified Code(s): N39.0 - Urinary tract infection, site not specified Is this a current diagnosis for this admission?: Yes Plan: Will start patient on Rocephin. Urine culture ordered. (4) Syncope Is this a current diagnosis for this admission?: Yes Plan: No head trauma. Check orthostatic vital signs and carotid doppler. - Time Time Spent with patient: 25-34 minutes
--- NOTE | 2019-09-08 19:07 | ADVANCED CARE ---
- Diagnosis (1) Atrial fibrillation and flutter Diagnosis Current: Yes (2) Hyponatremia Diagnosis Current: Yes (3) Urinary tract infection Diagnosis Current: Yes Resuscitation Status: Do Not Resuscitate Discussion: Patient says she is a DNR/DNI. She verbalizes she does not want any chest compressions or mechanical ventilation if the need arises. She says "I'm 84 and have lived a good life and would rather pass away in peace." She says her daughterDonna is her surrogate medical decision maker.
[2019-09-08 19:19] LABS: URINE SODIUM 82 mmol/L (30-90)
[2019-09-08] MEDS ORDERED: ACETAMINOPHEN 325 MG TABLET PO ONE (19:21)
[2019-09-08 19:23] LABS: OSMOLALITY,URINE 470 mOsm/kg (300-900)
--- NOTE | 2019-09-08 19:43 | EKG REPORT ---
SEVERITY:- ABNORMAL ECG - ATRIAL FLUTTER, A-RATE 277 : Confirmed by: Esme Haji MD 08-Sep-2019 19:41:43
[2019-09-08 19:46] LABS: FREE T3 2.1 pg/mL (2.77-5.27); FREE T4 (FREE THYROXINE) 1.47 ng/dL (0.78-2.19)
[2019-09-08 20:00] LABS: THYROID STIMULATING HORMONE 3.07 uIU/mL (0.47-4.68)
[2019-09-08] MEDS: CEFTRIAXONE 1 GM/D5W RTU 1 GM/50 ML RTUPB IV SCH (20:56)
--- NOTE | 2019-09-08 21:02 | RADIOLOGY REPORT (SQ) ---
Clinical indication: SOB, new onset aflutter Comparison: None. Correlation: Chest radiography September 08, 2019 Technique: Perfusion imaging was obtained as per standard protocol after intravenous administration of 5.42 mCi of technetium 99m labeled MAA. Ventilation imaging was obtained after inhalation of 31.9 mCi of technetium 99m labeled DTPA radioaerosol. Findings: Homogeneous localization of radiotracer is identified on perfusion imaging. No segmental or subsegmental defects are identified to suggest a pulmonary embolus. Ventilation imaging demonstrates mild clumping. Impression: Low probability for pulmonary embolus.
[2019-09-08] MEDS ORDERED: ACETAMINOPHEN WITH CODEINE #3 TABLET PO ONE (22:03)
[2019-09-08] MEDS: HEPARIN SOD (PORCINE) 5,000 UNIT/ML 1 ML VIAL SUBCUT SCH (22:14)
[2019-09-09] MEDS ORDERED: DILTIAZEM HCL/D5W 125 MG/125 ML RTUINJ IV PRN (02:36)
[2019-09-09 05:02] LABS: APPEARANCE,URINE CLEAR; BILIRUBIN,URINE NEGATIVE (NEGATIVE); COLOR,URINE STRAW; GLUCOSE, URINE NEGATIVE (NEGATIVE); KETONES,URINE NEGATIVE (NEGATIVE); LEUKOCYTE ESTERASE,URINE MODERATE (NEGATIVE); NITRITE,URINE NEGATIVE (NEGATIVE); PROTEIN,URINE NEGATIVE (NEGATIVE); URINE SPECIFIC GRAVITY 1.003; UROBILINOGEN,URINE NEGATIVE mg/dL (<2.0)
[2019-09-09] MEDS: HEPARIN SOD (PORCINE) 5,000 UNIT/ML 1 ML VIAL SUBCUT SCH (06:18)
--- NOTE | 2019-09-09 10:54 | PDOC CONSULTATION ---
Consultation Consult Date: 09/09/19 Attending physician:: LALIT STEARNS Provider Consulted: JOSE AGUILA Consult reason:: Atrial fibrillation History of Present Illness Admission Date/PCP: 09/08/19 18:05 DARNELL DANIEL Patient complains of: Palpitations, weakness History of Present Illness: ZACHARY OVALLE is a 84 year old female With medical history significant for hypertension GERD and hypothyroidism presented with recent urinary tract infection and palpitations. In the emergency room she was found to be in atrial fibrillation with rapid ventricular response. She was started with intravenous rate control medicines and the heart rate is already better. She continues to be in atrial fibrillation although ventricular rate is better controlled. Cervical spine fusion surgeries reported No familial illnesses reported. No tobacco use is reported. Past Medical History Cardiac Medical History: Reports: Hypertension Denies: Coronary Artery Disease, Myocardial Infarction Pulmonary Medical History: Reports: Asthma - SOB ON EXERTION Denies: Bronchitis, Chronic Obstructive Pulmonary Disease (COPD), Pneumonia Neurological Medical History: Denies: Seizures Endocrine Medical History: Reports: Hypothyroidism GI Medical History: Reports: Gastroesophageal Reflux Disease Musculoskeltal Medical History: Reports: Arthritis Hematology: Denies: Anemia Past Surgical History Past Surgical History: Reports: Appendectomy, Cholecystectomy, Hysterectomy, Orthopedic Surgery - Rotator cuff, Other - Bladder reconstruction, bilateral cataracts Social History Smoking Status: Never Smoker - Advance Directive Resuscitation Status: Do Not Resuscitate Family History Family History: Reviewed & Not Pertinent Parental Family History Reviewed: No - No familial illnesses Children Family History Reviewed: NA Sibling(s) Family History Reviewed.: NA Medication/Allergy Home Medications: Cathleen 180 mg PO DAILY 05/06/11 Aspirin 81 mg PO DAILY 05/06/11 Hydrochlorothiazide 25 mg PO DAILY 05/06/11 Vitamins One A Day 1 tab PO DAILY 05/06/11 Acetaminophen with Codeine [Tylenol #3 Tablet] 1 each PO TIDP PRN 10/28/16 Ascorbic Acid [Vitamin C 500 mg Tablet] 1,000 mg PO DAILY 09/08/19 Cholecalciferol (Vitamin D3) [Vitamin D3 1000 Unit Tablet] 1,000 unit PO DAILY 09/08/19 Latanoprost [Xalatan] 1 drop OU QHS 09/08/19 Levothyroxine Sodium 50 mcg PO DAILY 09/08/19 [place]-3/Dha/Epa/Fish Oil [Fish Oil 1,000 mg Softgel] 1 each PO DAILY 09/08/19 Allergies/Adverse Reactions: rofecoxib [From Vioxx] Allergy (Mild, Verified 03/31/17 14:40) Nausea Review of Systems Constitutional: PRESENT: as per HPI, fatigue, weakness Nose, Mouth, and Throat: PRESENT: as per HPI Cardiovascular: PRESENT: as per HPI, palpitations Respiratory: PRESENT: as per HPI Gastrointestinal: PRESENT: as per HPI Musculoskeletal: PRESENT: as per HPI Neurological: PRESENT: as per HPI Physical Exam Vital Signs: Temp Pulse Resp BP Pulse Ox 97.8 F 81 21 H 113/54 L 98 09/09/19 05:35 09/09/19 02:52 09/09/19 10:31 09/09/19 10:31 09/09/19 10:31 Intake & Output 09/08/19 09/09/19 09/10/19 06:59 06:59 06:59 Intake Total 2049 37 Balance 2049 37 Weight 63.503 kg General appearance: PRESENT: no acute distress, cooperative, obese Head exam: PRESENT: atraumatic Eye exam: PRESENT: conjunctiva pink, EOMI Mouth exam: PRESENT: dry mucosa Respiratory exam: PRESENT: clear to auscultation bill, symmetrical, unlabored Cardiovascular exam: PRESENT: irregular rhythm, +S1, +S2 Pulses: PRESENT: normal radial pulses GI/Abdominal exam: PRESENT: soft Rectal exam: PRESENT: deferred Musculoskeletal exam: PRESENT: normal inspection Neurological exam: PRESENT: alert, awake, oriented to person, oriented to place, oriented to time, oriented to situation Psychiatric exam: PRESENT: appropriate affect Skin exam: PRESENT: dry, intact, normal color Results Laboratory Results: 09/08/19 11:05 09/08/19 11:05 09/08/19 09/08/19 09/08/19 11:05 11:05 11:05 WBC 14.8 H RBC 4.41 Hgb 13.3 Hct 39.2 MCV 89 MCH 30.1 MCHC 33.9 RDW 13.3 Plt Count 277 Seg Neutrophils % 84.8 H VBG pH VBG pCO2 VBG HCO3 VBG Base Excess Sodium 127.7 L Potassium 3.6 Chloride 88 L Carbon Dioxide 30 Anion Gap 10 BUN 17 Creatinine 0.77 Est GFR ( Amer) > 60 Glucose 156 H Serum Osmolality 271 L Lactic Acid Calcium 9.2 Total Bilirubin 0.4 AST 37 H Alkaline Phosphatase 137 H Total Protein 7.2 Albumin 4.1 TSH Free T4 Free T3 pg/mL Urine Color Urine Appearance Urine pH Ur Specific [place] Urine Protein Urine Glucose (UA) Urine Ketones Urine Blood Urine Nitrite Ur Leukocyte Esterase Urine WBC (Auto) Urine RBC (Auto) Urine Osmolality 09/08/19 09/08/19 09/08/19 11:05 11:50 11:50 WBC RBC Hgb Hct MCV MCH MCHC RDW Plt Count Seg Neutrophils % VBG pH VBG pCO2 VBG HCO3 VBG Base Excess Sodium Potassium Chloride Carbon Dioxide Anion Gap BUN Creatinine Est GFR ( Amer) Glucose Serum Osmolality Lactic Acid 2.4 H Calcium Total Bilirubin AST Alkaline Phosphatase Total Protein Albumin TSH 3.07 Free T4 1.47 Free T3 pg/mL 2.10 L Urine Color YELLOW Urine Appearance SLIGHTLY-CLOUDY Urine pH 6.0 Ur Specific [place] 1.014 Urine Protein NEGATIVE Urine Glucose (UA) NEGATIVE Urine Ketones TRACE H Urine Blood NEGATIVE Urine Nitrite POSITIVE H Ur Leukocyte Esterase NEGATIVE Urine WBC (Auto) 27 Urine RBC (Auto) 1 Urine Osmolality 09/08/19 09/08/19 09/08/19 11:50 12:22 14:43 WBC RBC Hgb Hct MCV MCH MCHC RDW Plt Count Seg Neutrophils % VBG pH 7.42 VBG pCO2 43.9 VBG HCO3 27.6 VBG Base Excess 2.6 Sodium Potassium Chloride Carbon Dioxide Anion Gap BUN Creatinine Est GFR ( Amer) Glucose Serum Osmolality Lactic Acid 2.0 Calcium Total Bilirubin AST Alkaline Phosphatase Total Protein Albumin TSH Free T4 Free T3 pg/mL Urine Color Urine Appearance Urine pH Ur Specific [place] Urine Protein Urine Glucose (UA) Urine Ketones Urine Blood Urine Nitrite Ur Leukocyte Esterase Urine WBC (Auto) Urine RBC (Auto) Urine Osmolality 470 09/08/19 09/09/19 18:08 04:38 WBC RBC Hgb Hct MCV MCH MCHC RDW Plt Count Seg Neutrophils % VBG pH VBG pCO2 VBG HCO3 VBG Base Excess Sodium Potassium Chloride Carbon Dioxide Anion Gap BUN Creatinine Est GFR ( Amer) Glucose Serum Osmolality Lactic Acid 1.4 Calcium Total Bilirubin AST Alkaline Phosphatase Total Protein Albumin TSH Free T4 Free T3 pg/mL Urine Color STRAW Urine Appearance CLEAR Urine pH 6.0 Ur Specific [place] 1.003 Urine Protein NEGATIVE Urine Glucose (UA) NEGATIVE Urine Ketones NEGATIVE Urine Blood NEGATIVE Urine Nitrite NEGATIVE Ur Leukocyte Esterase MODERATE H Urine WBC (Auto) 53 Urine RBC (Auto) 1 Urine Osmolality 09/08/19 11:50 Troponin I < 0.012 EKG Comments: Telemetry presently shows atrial fibrillation with controlled ventricular response at 62 to 72 bpm Twelve-lead EKG. Independently reviewed by me. 09/08/2019 Atrial fibrillation 119 bpm Impressions: Chest X-Ray 09/08/19 11:35 IMPRESSION: No acute cardiopulmonary process. Lumbar Spine CT 09/08/19 16:18 IMPRESSION: Advanced degenerative spondylosis and facet arthropathy of the l umbar spine as detailed above. There is no acute fracture or malalignment of the lumbar spine. Assessment & Plan - Diagnosis (1) Atrial fibrillation with rapid ventricular response Is this a current diagnosis for this admission?: Yes Plan: Atrial fibrillation with rapid ventricular response. Patient was started on intravenous rate control medicines and the ventricular rate is better controlled now Would recommend discontinuing intravenous diltiazem Would recommend oral beta-holli such as metoprolol succinate 25 mg oral every day evening A decision has to be made on systemic anticoagulation. The patient is a fall risk and cannot pursue systemic anticoagulation or is not inclined to pursue systemic anticoagulation we cannot proceed with cardioversion if the patient does not go back to sinus rhythm on her own Meanwhile treatment of urinary tract infection and general symptoms of infection is necessary. (2) Urinary tract infection Qualifiers: Urinary tract infection type: site unspecified Hematuria presence: without hematuria Qualified Code(s): N39.0 - Urinary tract infection, site not specified Is this a current diagnosis for this admission?: Yes Plan: Antibiotics and treatment of urinary tract infection per primary team.
[2019-09-09 11:29] LABS: ABSOLUTE EOSINOPHILS # (AUTO) 0.1 10^3/uL (0.0-0.6); ABSOLUTE LYMPHOCYTES (AUTO) 1.6 10^3/uL (0.5-4.7); ABSOLUTE MONOCYTES (AUTO) 0.5 10^3/uL (0.1-1.4); ABSOLUTE NEUT (AUTO) 3.1 10^3/uL (1.7-8.2); BASOPHILS % (AUTO) 0.5 % (0-2); EOSINOPHILS % (AUTO) 2.5 % (0-6); HEMATOCRIT 30.6 % (36.0-47.0); LYMPHOCYTES % (AUTO) 29.4 % (13-45); MEAN CORPUSCULAR HEMOGLOBIN 30.9 pg (27.0-33.4); MEAN CORPUSCULAR HGB CONC 35.1 g/dL (32.0-36.0); MEAN CORPUSCULAR VOLUME 88 fl (80-97); MONOCYTES % (AUTO) 9.3 % (3-13); PLATELET COUNT 191 10^3/uL (150-450); RED BLOOD COUNT 3.47 10^6/uL (3.72-5.28); RED CELL DISTRIBUTION WIDTH 13.6 % (11.5-14.0); SEGMENTED NEUTROPHILS % (AUTO) 58.3 % (42-78); TOTAL CELLS COUNTED % (AUTO) 100 %; WHITE BLOOD COUNT 5.4 10^3/uL (4.0-10.5)
[2019-09-09 11:31] LABS: HEMOGLOBIN 10.7 g/dL (12.0-15.5)
[2019-09-09 11:53] LABS: BLOOD UREA NITROGEN 11 mg/dL (7-20); CALCIUM 8.4 mg/dL (8.4-10.2); CARBON DIOXIDE 30 mmol/L (22-30); CHLORIDE 100 mmol/L (98-107); GLUCOSE 134 mg/dL (75-110); POTASSIUM 3.3 mmol/L (3.6-5.0)
[2019-09-09 12:02] LABS: ANION GAP 5 (5-19)
[2019-09-09] MEDS: METOPROLOL TARTRATE 25 MG TABLET PO SCH ×2 (12:15→21:10)
[2019-09-09] MEDS: APIXABAN 5 MG TABLET PO SCH ×2 (12:15→17:41)
[2019-09-09] MEDS ORDERED: ACETAMINOPHEN WITH CODEINE #3 TABLET PO PRN (12:24)
[2019-09-09] MEDS ORDERED: POTASSIUM CHLORIDE 10 MEQ TABLET.ER PO ONE (15:35)
--- NOTE | 2019-09-09 15:37 | PDOC PROGRESS REPORT ---
Subjective Progress Note for:: 09/09/19 Subjective:: This is an 84-year-old female was admitted with new onset atrial fibrillation. No acute event overnight. She was weaned off Cardizem drip last night. Currently in A. fib, rate controlled. She says she feels better today. Denies chest pain or shortness of breath. We rediscuss her thoughts on anticoagulation. We discussed benefits of stroke reduction and risk of bleeding. She has verbalized she does not want to be on Coumadin because of frequent testing and is amenable to being started on Eliquis. Reason For Visit: AFLUTTER IN RVR, SYNCOPE Physical Exam Vital Signs: Temp Pulse Resp BP Pulse Ox 97.9 F 73 23 H 112/90 H 98 09/09/19 14:32 09/09/19 14:32 09/09/19 15:01 09/09/19 15:01 09/09/19 15:01 Intake & Output 09/08/19 09/09/19 09/10/19 06:59 06:59 06:59 Intake Total 2049 37 Balance 2049 37 Weight 140 lb General appearance: PRESENT: no acute distress, well-developed, well-nourished Head exam: PRESENT: atraumatic, normocephalic Eye exam: PRESENT: conjunctiva pink, EOMI, PERRLA. ABSENT: scleral icterus Ear exam: PRESENT: normal external ear exam Mouth exam: PRESENT: moist, tongue midline Neck exam: ABSENT: carotid bruit, JVD, lymphadenopathy, thyromegaly Respiratory exam: PRESENT: clear to auscultation bill. ABSENT: rales, rhonchi, wheezes Cardiovascular exam: PRESENT: irregular rhythm. ABSENT: rubs Pulses: PRESENT: normal dorsalis pedis pul GI/Abdominal exam: PRESENT: normal bowel sounds, soft. ABSENT: distended, guarding, mass, organolmegaly, rebound, tenderness Rectal exam: PRESENT: deferred Extremities exam: PRESENT: full ROM. ABSENT: calf tenderness, clubbing, pedal edema Neurological exam: PRESENT: alert, awake, oriented to person, oriented to place, oriented to time, oriented to situation, CN II-XII grossly intact. ABSENT: motor sensory deficit Results Laboratory Results: 09/09/19 10:52 09/09/19 10:52 09/08/19 09/08/19 09/08/19 11:05 11:05 11:50 WBC RBC Hgb Hct MCV MCH MCHC RDW Plt Count Seg Neutrophils % Sodium Potassium Chloride Carbon Dioxide Anion Gap BUN Creatinine Est GFR ( Amer) Glucose Serum Osmolality 271 L Lactic Acid Calcium TSH 3.07 Free T4 1.47 Free T3 pg/mL 2.10 L Urine Color Urine Appearance Urine pH Ur Specific [place] Urine Protein Urine Glucose (UA) Urine Ketones Urine Blood Urine Nitrite Ur Leukocyte Esterase Urine WBC (Auto) Urine RBC (Auto) Urine Osmolality 470 09/08/19 09/09/19 09/09/19 18:08 04:38 10:52 WBC 5.4 RBC 3.47 L Hgb 10.7 L D Hct 30.6 L MCV 88 MCH 30.9 MCHC 35.1 RDW 13.6 Plt Count 191 Seg Neutrophils % 58.3 Sodium Potassium Chloride Carbon Dioxide Anion Gap BUN Creatinine Est GFR ( Amer) Glucose Serum Osmolality Lactic Acid 1.4 Calcium TSH Free T4 Free T3 pg/mL Urine Color STRAW Urine Appearance CLEAR Urine pH 6.0 Ur Specific [place] 1.003 Urine Protein NEGATIVE Urine Glucose (UA) NEGATIVE Urine Ketones NEGATIVE Urine Blood NEGATIVE Urine Nitrite NEGATIVE Ur Leukocyte Esterase MODERATE H Urine WBC (Auto) 53 Urine RBC (Auto) 1 Urine Osmolality 09/09/19 10:52 WBC RBC Hgb Hct MCV MCH MCHC RDW Plt Count Seg Neutrophils % Sodium 134.9 L Potassium 3.3 L Chloride 100 Carbon Dioxide 30 Anion Gap 5 BUN 11 Creatinine 0.57 Est GFR ( Amer) > 60 Glucose 134 H Serum Osmolality Lactic Acid Calcium 8.4 TSH Free T4 Free T3 pg/mL Urine Color Urine Appearance Urine pH Ur Specific [place] Urine Protein Urine Glucose (UA) Urine Ketones Urine Blood Urine Nitrite Ur Leukocyte Esterase Urine WBC (Auto) Urine RBC (Auto) Urine Osmolality 09/08/19 11:50 Troponin I < 0.012 Impressions: Chest X-Ray 09/08/19 11:35 IMPRESSION: No acute cardiopulmonary process. 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 There is no acute fracture or malalignment of the lumbar spine. Assessment and Plan - Diagnosis (1) Atrial fibrillation and flutter Is this a current diagnosis for this admission?: Yes Plan: Off Cardizem drip. She will be started on p.o. Lopressor and Eliquis. Discussed with cardiology. She will closely follow-up later next week with Dr. Cornelius Irvin. (2) Hyponatremia Is this a current diagnosis for this admission?: Yes Plan: Resolving with IV fluids. (3) Urinary tract infection Qualifiers: Urinary tract infection type: site unspecified Hematuria presence: without hematuria Qualified Code(s): N39.0 - Urinary tract infection, site not specified Is this a current diagnosis for this admission?: Yes Plan: Urine culture growing gram-negative rods. Continue Rocephin. - Time Time Spent with patient: 25-34 minutes
[2019-09-09] MEDS: CEFTRIAXONE 1 GM/D5W RTU 1 GM/50 ML RTUPB IV SCH (17:42)
[2019-09-09] MEDS: GUAIFENESIN 600 MG TABLET.SA PO SCH (21:10)
[2019-09-09] MEDS ORDERED: LATANOPROST 0.005% OPH SOLN 2.5 ML OU SCH (22:00)
[2019-09-10 06:02] LABS: ABSOLUTE EOSINOPHILS # (AUTO) 0.3 10^3/uL (0.0-0.6); ABSOLUTE LYMPHOCYTES (AUTO) 2.2 10^3/uL (0.5-4.7); ABSOLUTE MONOCYTES (AUTO) 0.5 10^3/uL (0.1-1.4); ABSOLUTE NEUT (AUTO) 3.4 10^3/uL (1.7-8.2); BASOPHILS % (AUTO) 0.7 % (0-2); EOSINOPHILS % (AUTO) 4.7 % (0-6); HEMATOCRIT 31.8 % (36.0-47.0); HEMOGLOBIN 10.8 g/dL (12.0-15.5); LYMPHOCYTES % (AUTO) 34.3 % (13-45); MEAN CORPUSCULAR HEMOGLOBIN 30.3 pg (27.0-33.4); MEAN CORPUSCULAR HGB CONC 33.8 g/dL (32.0-36.0); MEAN CORPUSCULAR VOLUME 90 fl (80-97); MONOCYTES % (AUTO) 8.4 % (3-13); PLATELET COUNT 168 10^3/uL (150-450); RED BLOOD COUNT 3.55 10^6/uL (3.72-5.28); RED CELL DISTRIBUTION WIDTH 13.6 % (11.5-14.0); SEGMENTED NEUTROPHILS % (AUTO) 51.9 % (42-78); TOTAL CELLS COUNTED % (AUTO) 100 %; WHITE BLOOD COUNT 6.5 10^3/uL (4.0-10.5)
[2019-09-10 06:26] LABS: ANION GAP 5 (5-19); BLOOD UREA NITROGEN 13 mg/dL (7-20); CALCIUM 8.6 mg/dL (8.4-10.2); CARBON DIOXIDE 29 mmol/L (22-30); CHLORIDE 100 mmol/L (98-107); GLUCOSE 89 mg/dL (75-110)
[2019-09-10 06:49] LABS: POTASSIUM 4.3 mmol/L (3.6-5.0)
[2019-09-10] MEDS: METOPROLOL TARTRATE 25 MG TABLET PO SCH (09:56)
[2019-09-10] MEDS: APIXABAN 5 MG TABLET PO SCH (09:56)
[2019-09-10] MEDS: GUAIFENESIN 600 MG TABLET.SA PO SCH (09:57)
[2019-09-10] MEDS ORDERED: CHOLECALCIFEROL (D3) 1,000 UNIT (25 MCG) TABLET PO SCH (10:00)
[2019-09-10] MEDS ORDERED: ASCORBIC ACID 500 MG TABLET PO SCH (10:00)
--- NOTE | 2019-09-10 14:28 | RADIOLOGY REPORT (SQ) ---
EXAM DESCRIPTION: CAROTID DOPPLER COMPLETED DATE/TIME: 09/10/2019 2:12 pm REASON FOR STUDY: Afib c RVR COMPARISON: None. TECHNIQUE: Grayscale ultrasound, Doppler velocity and spectra, and color Doppler images acquired of the extra-cranial carotid and vertebral arteries. Images stored on PACS. LIMITATIONS: None. FINDINGS: RIGHT CAROTID CCA Velocities: Within normal limits. ICA Velocities Peak systolic 0.78 m/s. End diastolic 0.21 m/s. Proximal ICA/CCA peak systolic ratio 1.5. Spectra normal. No significant plaque. LEFT CAROTID CCA Velocities: Within normal limits. ICA Velocities Peak systolic 0.87 m/s. End diastolic 0.26 m/s. Proximal ICA/CCA peak systolic ratio 1.28. Spectra normal. No significant plaque. VERTEBRAL ARTERIES: Antegrade flow. Normal waveforms. SUBCLAVIAN ARTERIES: No finding. OTHER: No other significant finding. IMPRESSION: NO HEMODYNAMICALLY SIGNIFICANT STENOSIS. COMMENT: Quality ID #[id number]: Velocity criteria are extrapolated from the diameter data as defined by t he Society of Radiologists in Ultrasound Consensus Conference. Radiology 2003: 229; 340-346. TECHNICAL DOCUMENTATION: JOB ID: [id number] 2010 [employer]- All Rights Reserved Reading location - IP/workstation name: [email or web address]
--- NOTE | 2019-09-10 17:30 | EKG REPORT ---
SEVERITY:- OTHERWISE NORMAL ECG - SINUS BRADYCARDIA : Confirmed by: Esme Haji MD 10-Sep-2019 17:29:50
[2019-09-10 17:55] VITALS: BP 135/88
--- NOTE | 2019-09-10 18:29 | PDOC DISCHARGE SUMMARY ---
Impression - Admit/DC Date/PCP Admission Date/Primary Care Provider: 09/08/19 18:05 DARNELL DANIEL Discharge Date: 09/10/19 - Discharge Diagnosis (1) Atrial fibrillation and flutter Is this a current diagnosis for this admission?: Yes (2) Hyponatremia Is this a current diagnosis for this admission?: Yes (3) Urinary tract infection Is this a current diagnosis for this admission?: Yes - Additional Information Resuscitation Status: Do Not Resuscitate Discharge Diet: As Tolerated Discharge Activity: Activity As Tolerated, Balance Activity w/Rest Referrals: JOSE AGUILA MD [ACTIVE STAFF] - 09/14/19 10:45 am Prescriptions: Apixaban [Eliquis 5 mg Tablet] 5 mg PO BID #60 tablet Cephalexin Monohydrate [Keflex 500 mg Capsule] 500 mg PO BID 4 Days #8 capsule Metoprolol Tartrate [Lopressor 25 mg Tablet] 12.5 mg PO Q12 #60 tab Home Medications: Cathleen 180 mg PO DAILY 05/06/11 Vitamins One A Day 1 tab PO DAILY 05/06/11 Acetaminophen with Codeine [Tylenol #3 Tablet] 1 each PO TIDP PRN 10/28/16 Ascorbic Acid [Vitamin C 500 mg Tablet] 1,000 mg PO DAILY 09/08/19 Cholecalciferol (Vitamin D3) [Vitamin D3 1000 Unit Tablet] 1,000 unit PO DAILY 09/08/19 Latanoprost [Xalatan] 1 drop OU QHS 09/08/19 Levothyroxine Sodium 50 mcg PO DAILY 09/08/19 [place]-3/Dha/Epa/Fish Oil [Fish Oil 1,000 mg Softgel] 1 each PO DAILY 09/08/19 Apixaban [Eliquis 5 mg Tablet] 5 mg PO BID #60 tablet 09/10/19 Cephalexin Monohydrate [Keflex 500 mg Capsule] 500 mg PO BID 4 Days #8 capsule 09/10/19 Metoprolol Tartrate [Lopressor 25 mg Tablet] 12.5 mg PO Q12 #60 tab 09/10/19 History of Present Illiness History of Present Illness: ZACHARY OVALLE is a 84 year old female with a PMH of hypertension, GERD and hypothyroidism who is presenting with weakness and syncope. Patient reports that she has been feeling generally week the past few days along with urinary frequency. She says she was suspecting she had a UTI. She reports she was at her house earlier today when she felt dizzy and weak and slouched on the chair. She says she actually passed out briefly and was told by her son that she briefly lost consciousness. No seizure-like activity, urinary or bowel incontinence. In the ER, she was found to be in AFlutter in the 130-140s and occasionally goes into NSR. On encounter, she appears comfortable. Tele shows Aflutter in the 130s but she goes into normal sinus rhythm briefly and had runs of AFib as well. She denies chest pain but reports she did have shortness of breath earlier today. Hospital Course Hospital Course: This is an 84-year-old female was admitted with new onset atrial fibrillation, UTI and hyponatremia. Cardiology was also consulted. Patient was started on Cardizem drip. She was weaned off of Cardizem drip and was started on p.o. Lopressor 25 mg twice daily. She was also started on IV Rocephin for her UTI. Patient did have an episode of bradycardia in the 40s. However her blood pressures remained stable and she remained asymptomatic. She was initially undecided about anticoagulation at first but after rediscussing benefits of stroke reduction and risk of bleeding, she verbalized she does not want to be on Coumadin because of frequent testing but was amenable to being started on Eliquis. Rediscussed with cardiology. Patient's Lopressor will be decreased to 12.5 mg twice daily. She will closely follow-up with Dr. Aguila later this week. Discussed with patient's daughter at son on the bedside in length as well. They clarified that although patient fell this time, she does not have recurrent fall falls and is not a fall risk at home. In fact, they say she participates in a [employer] exercise program. Explained that her fall was likely related to her A. fib with her hyponatremia contributory. She has been taking the hydrochlorothiazide for hypertension. HCTZ was discontinued. Her sodium levels also improved with stopping hydrochlorothiazide and IV fluids. She will also be discharged on Keflex for her UTI. Physical Exam Vital Signs: Temp Pulse Resp BP Pulse Ox 97.9 F 47 L 16 176/64 H 98 09/10/19 14:59 09/10/19 15:50 09/10/19 15:50 09/10/19 15:50 09/10/19 15:50 Intake & Output 09/09/19 09/10/19 09/11/19 06:59 06:59 06:59 Intake Total 2049 154 Balance 2049 154 Weight 140 lb 156 lb 11.979 oz General appearance: PRESENT: no acute distress, well-developed, well-nourished Head exam: PRESENT: atraumatic, normocephalic Eye exam: PRESENT: conjunctiva pink, EOMI, PERRLA. ABSENT: scleral icterus Ear exam: PRESENT: normal external ear exam Mouth exam: PRESENT: moist, tongue midline Neck exam: ABSENT: carotid bruit, JVD, lymphadenopathy, thyromegaly Respiratory exam: PRESENT: clear to auscultation bill. ABSENT: rales, rhonchi, wheezes Cardiovascular exam: PRESENT: irregular rhythm. ABSENT: rubs Pulses: PRESENT: normal dorsalis pedis pul GI/Abdominal exam: PRESENT: normal bowel sounds, soft. ABSENT: distended, guarding, mass, organolmegaly, rebound, tenderness Rectal exam: PRESENT: deferred Extremities exam: PRESENT: full ROM. ABSENT: calf tenderness, clubbing, pedal edema Neurological exam: PRESENT: alert, awake, oriented to person, oriented to place, oriented to time, oriented to situation, CN II-XII grossly intact. ABSENT: motor sensory deficit Results Laboratory Results: WBC 6.5 10^3/uL (4.0-10.5) 09/10/19 05:23 RBC 3.55 10^6/uL (3.72-5.28) L 09/10/19 05:23 Hgb 10.8 g/dL (12.0-15.5) L 09/10/19 05:23 Hct 31.8 % (36.0-47.0) L 09/10/19 05:23 MCV 90 fl (80-97) 09/10/19 05:23 MCH 30.3 pg (27.0-33.4) 09/10/19 05:23 MCHC 33.8 g/dL (32.0-36.0) 09/10/19 05:23 RDW 13.6 % (11.5-14.0) 09/10/19 05:23 Plt Count 168 10^3/uL (150-450) 09/10/19 05:23 Lymph % (Auto) 34.3 % (13-45) 09/10/19 05:23 [place] % (Auto) 8.4 % (3-13) 09/10/19 05:23 Eos % (Auto) 4.7 % (0-6) 09/10/19 05:23 Baso % (Auto) 0.7 % (0-2) 09/10/19 05:23 Absolute Neuts (auto) 3.4 10^3/uL (1.7-8.2) 09/10/19 05:23 Absolute Lymphs (auto) 2.2 10^3/uL (0.5-4.7) 09/10/19 05:23 Absolute Monos (auto) 0.5 10^3/uL (0.1-1.4) 09/10/19 05:23 Absolute Eos (auto) 0.3 10^3/uL (0.0-0.6) 09/10/19 05:23 Absolute Basos (auto) 0.0 10^3/uL (0.0-0.2) 09/10/19 05:23 Seg Neutrophils % 51.9 % (42-78) 09/10/19 05:23 PT 11.9 SEC (11.4-15.4) 09/08/19 11:05 INR 0.88 09/08/19 11:05 VBG pH 7.42 (7.30-7.42) 09/08/19 12:22 VBG pCO2 43.9 mmHg (35-63) 09/08/19 12:22 VBG HCO3 27.6 mmol/L (20-32) 09/08/19 12:22 VBG Base Excess 2.6 mmol/L 09/08/19 12:22 Sodium 133.7 mmol/L (137-145) L 09/10/19 05:23 Potassium 4.3 mmol/L (3.6-5.0) D 09/10/19 05:23 Chloride 100 mmol/L (98-107) 09/10/19 05:23 Carbon Dioxide 29 mmol/L (22-30) 09/10/19 05:23 Anion Gap 5 (5-19) 09/10/19 05:23 BUN 13 mg/dL (7-20) 09/10/19 05:23 Creatinine 0.61 mg/dL (0.52-1.25) 09/10/19 05:23 Est GFR ( Amer) > 60 (>60) 09/10/19 05:23 Est GFR (MDRD) Non-Af > 60 (>60) 09/10/19 05:23 Glucose 89 mg/dL (75-110) 09/10/19 05:23 POC Glucose 106 mg/dL (70-110) 09/09/19 03:04 Serum Osmolality 271 mOsm/kg (275-301) L 09/08/19 11:05 Lactic Acid 1.4 mmol/L (0.7-2.1) 09/08/19 18:08 Calcium 8.6 mg/dL (8.4-10.2) 09/10/19 05:23 Total Bilirubin 0.4 mg/dL (0.2-1.3) 09/08/19 11:05 Direct Bilirubin 0.0 mg/dL (0.0-0.4) 09/08/19 11:05 Neonat Total Bilirubin Not Reportable 09/08/19 11:05 Neonat Direct Bilirubin Not Reportable 09/08/19 11:05 Neonat Indirect Bili Not Reportable 09/08/19 11:05 AST 37 U/L (14-36) H 09/08/19 11:05 ALT 20 U/L (<35) 09/08/19 11:05 Alkaline Phosphatase 137 U/L (38-126) H 09/08/19 11:05 Troponin I < 0.012 ng/mL 09/08/19 11:50 Total Protein 7.2 g/dL (6.3-8.2) 09/08/19 11:05 Albumin 4.1 g/dL (3.5-5.0) 09/08/19 11:05 TSH 3.07 uIU/mL (0.47-4.68) 09/08/19 11:05 Free T4 1.47 ng/dL (0.78-2.19) 09/08/19 11:05 Free T3 pg/mL 2.10 pg/mL (2.77-5.27) L 09/08/19 11:05 Urine Color STRAW 09/09/19 04:38 Urine Appearance CLEAR 09/09/19 04:38 Urine pH 6.0 (5.0-9.0) 09/09/19 04:38 Ur Specific [place] 1.003 09/09/19 04:38 Urine Protein NEGATIVE mg/dL (NEGATIVE) 09/09/19 04:38 Urine Glucose (UA) NEGATIVE mg/dL (NEGATIVE) 09/09/19 04:38 Urine Ketones NEGATIVE mg/dL (NEGATIVE) 09/09/19 04:38 Urine Blood NEGATIVE (NEGATIVE) 09/09/19 04:38 Urine Nitrite NEGATIVE (NEGATIVE) 09/09/19 04:38 Urine Bilirubin NEGATIVE (NEGATIVE) 09/09/19 04:38 Urine Urobilinogen NEGATIVE mg/dL (<2.0) 09/09/19 04:38 Ur Leukocyte Esterase MODERATE (NEGATIVE) H 09/09/19 04:38 Urine WBC (Auto) 53 /HPF 09/09/19 04:38 Urine RBC (Auto) 1 /HPF 09/09/19 04:38 Urine Bacteria (Auto) TRACE /HPF 09/09/19 04:38 Squamous Epi Cells Auto <1 /HPF 09/08/19 11:50 Urine Mucus (Auto) RARE /LPF 09/09/19 04:38 Urine Osmolality 470 mOsm/kg (300-900) 09/08/19 11:50 Urine Sodium 82 mmol/L (30-90) 09/08/19 11:50 Urine Ascorbic Acid NEGATIVE (NEGATIVE) 09/09/19 04:38 09/08/19 11:50 Troponin I < 0.012 Impressions: Chest X-Ray 09/08/19 11:35 IMPRESSION: No acute cardiopulmonary process. 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 There is no acute fracture or malalignment of the lumbar spine. Carotid Doppler Study 09/10/19 00:00 IMPRESSION: NO HEMODYNAMICALLY SIGNIFICANT STENOSIS. Stroke Is this a Stroke Patient?: No Acute Heart Failure - Is this a Heart Failure Patient?: No
[2019-09-10] MEDS ORDERED: METOPROLOL TARTRATE 25 MG TABLET PO SCH (22:00)
--- NOTE | 2019-09-12 13:14 | XCELERA REPORT ---
[address] [address] Transthoracic Echocardiogram Report Name: ZACHARY OVALLE Age: 84 yrs Gender: Female : 1935 Patient Status: Inpatient Patient Location: [address] [place] [address] Study Date: 09/10/2019 01:14 PM History: Atrial fibrillation Height: 60 in Weight: 156 lb BSA: 1.7 m2 Procedure: A complete two-dimensional transthoracic echocardiogram was performed (2D, M-mode, spectral and color flow Doppler). The study was technically difficult with many images being suboptimal in quality. Reason For Study: New onset Afib, SOB Previous Evaluation: No previous studies were available. History: Atrial fibrillation. Ordering Physician: LALIT STEARNS Performed By: Catie Del Rosario Interpretation Summary Left ventricular systolic function is normal. The Ejection Fraction estimate is 55-60% The right ventricle is normal in size and function. There is a trace amount of mitral regurgitation There is no aortic valve stenosis There is a trace amount of tricuspid regurgitation There is no pericardial effusion. MMode/2D Measurements & Calculations RVDd: 1.8 cm LVIDd: 4.2 cm FS: 37.7 % Ao root diam: 2.6 cm IVSd: 0.87 cm LVIDs: 2.6 cm EDV(Teich): Ao root area: LVPWd: 0.84 cm 78.5 ml 5.3 cm2 ESV(Teich): LA dimension: 2.7 cm 24.9 ml EF(Teich): 68.2 % LVLd ap4: 6.1 cm SV(MOD-sp4): EDV(MOD-sp4): 29.0 ml 44.0 ml LVLs ap4: 5.1 cm ESV(MOD-sp4): 15.0 ml EF(MOD-sp4): 65.9 % Doppler Measurements & Calculations MV E max robbin: MV P1/2t max robbin: Ao V2 max: LV V1 max P.4 cm/sec 155.6 cm/sec 152.0 cm/sec 2.8 mmHg MV A max robbin: MV P1/2t: 52.6 msec Ao max P.2 mmHgLV V1 max: 57.8 cm/sec MVA(P1/2t): 4.2 cm2 82.9 cm/sec MV E/A: 2.2 MV dec slope: 867.1 cm/sec2 MV dec time: 0.20 sec PA V2 max: TR max robbin: MV P1/2t-pr_phl: 100.8 cm/sec 288.4 cm/sec 52.6 msec PA max P.1 mmHg TR max P.3 mmHg Left Ventricle The left ventricle is grossly normal size. There is normal left ventricular wall thickness. Left ventricular systolic function is normal. The Ejection Fraction estimate is 55-60%. Doppler measurements suggest pseudonormalized left ventricular relaxation, which is associated with grade II/IV or mild to moderate diastolic dysfunction. Regional wall motion abnormalities cannot be excluded due to limited visualization. Right Ventricle The right ventricle is normal in size and function. Atria The right atrium is normal. The left atrial size is normal. Mitral Valve The mitral valve is grossly normal. There is a trace amount of mitral regurgitation. Aortic Valve The aortic valve is not well visualized secondary to technical limitations. There is no aortic valve stenosis. By Doppler there is no . Valve is not well seen. There is a trace amount of aortic regurgitation. Tricuspid Valve The tricuspid valve is not well visualized secondary to technical limitations. There is a trace amount of tricuspid regurgitation. Tricuspid regurgitation jet envelope not well defined to measure RV systolic pressure accurately. Pulmonic Valve The pulmonic valve is not well visualized. There is a trace amount of pulmonic regurgitation. Great Vessels The aortic root is normal size. The inferior vena cava appeared dilated and decreased < 50% with respiration (RAP 15-20 mmHg). Effusions There is no pericardial effusion. : LALIT STEARNS Anil
== END 2019-09-10 17:55 | disposition home or self-care (01) | DRG 309 ==
LOC: ER 11:29 → EH 18:05 → 3S 09-09 15:17
PROVIDERS: ADMIT Internal Medicine; ATTEND Internal Medicine
DX: I48.91 Unspecified atrial fibrillation (principal); N39.0 Urinary tract infection, site not specified; E87.1 Hypo-osmolality and hyponatremia; B96.1 Klebsiella pneumoniae [K. pneumoniae] as the cause of diseases classified elsewhere; I10 Essential (primary) hypertension; E03.9 Hypothyroidism, unspecified; K21.9 Gastro-esophageal reflux disease without esophagitis; R53.1 Weakness; Z79.82 Long term (current) use of aspirin; Z79.899 Other long term (current) drug therapy
CPT/HCPCS: 36415; 71045; 72131; 78582; 80048; 80053; 81001; 82803; 82962; 83605; 83930; 83935; 84300; 84439; 84443; 84481; 84484; 85025; 85610; 87040; 87086; 87088; 87186; 93005; 93010; 93306; 93880; 96360; 96361; 99285; A9540; A9567; J0696; J1644; J3490; J7030; Q9969

== ENCOUNTER → 2020-07-23 | Outpatient (CLI) | payer MEDICARE, BC ==
[~2020-07-23] MED LIST changes: -EPINEPHRINE INJ 1 MG/10 ML DISP.SYRIN ONE; -FENTANYL CITRATE INJ/PF 100 MCG/2 ML AMPUL ONE; -FLUMAZENIL INJ 0.5 MG/5 ML VIAL IV ONE; -GLYCOPYRROLATE INJ 0.4 MG/2 ML VIAL ONE; -MIDAZOLAM 2 MG/2 ML INJ ONE; -NALOXONE HCL INJ/PF 0.4 MG/1 ML SDV ONE; -ONDANSETRON HCL INJ/PF 4 MG/2 ML SDV ONE; +REGADENOSON INJ 0.4 MG/5 ML DISP.SYRIN IV ONE
--- NOTE | 2020-07-23 14:33 | DRAGON STRESS TEST REPORT ---
Pharmacological nuclear stress test Date: July 23, 2020 Referring physician:Cornelius Irvin MD Performing physician: Cornelius Irvin MD Indication: Chest pain Clinical history 84-year-old lady with medical history significant for systemic hypertension as well as GERD presented to the office with complaints of chest pain. We decided to proceed with pharmacological nuclear stress test. Procedure The patient presented to the stress lab. Initially rest images were obtained according to standard protocol after the injection of of 10.98 millicurie technetium 99m sestamibi. Subsequently the patient underwent pharmacological stress utilizing 0.4 mg of regadenoson intravenously. The patient's EKG and vital signs were monitored throughout the procedure. Subsequently patient was injected with 32 millicuries of technetium 99m sestamibi. After a period of rest, stress images were obtained according to standard protocol. EKG showed sinus bradycardia at 53 beats per minute. The patient's stress EKG did not show any evidence for myocardial ischemia. There were no arrhythmias observed. Raw as well as processed rest and stress images were reviewed. There was mild to moderate gut uptake which did not interfere with the study. The rest and stress images show uniform uptake of radioactive isotope without any fixed or reversible defects to suggest myocardial ischemia or myocardial infarction. There is normal contractility post-stress. The calculated ejection fraction is 62 %. The TID ratio is 1.11. Conclusion The stress EKG is negative for myocardial ischemia There is no scintigraphic evidence of myocardial infarction or ischemia provoked by pharmacological stress. There is normal contractility post-stress. The gated left ventricular ejection fraction is 62%. The patient will be given an appointment to discuss these results. MTDD
== END ==
LOC: RAD 08:07
PROVIDERS: ATTEND Internal Medicine
DX: R07.9 Chest pain, unspecified (principal); I10 Essential (primary) hypertension; K21.9 Gastro-esophageal reflux disease without esophagitis
CPT/HCPCS: 93017; 78452; A9500; J2785; Q9969

== ENCOUNTER → 2020-07-26 | Outpatient (CLI) | payer MEDICARE, BC ==
--- NOTE | 2020-07-26 13:08 | WOMENS IMAGING REPORT ---
EXAM DESCRIPTION: BILAT SCREENING MAMMO W/CAD IMAGES COMPLETED DATE/TIME: 07/26/2020 11:53 am REASON FOR STUDY: ROUTINE SCREENING MAMMOGRAM Z12.31 Z12.31 ENCNTR SCREEN MAMMOGRAM FOR MALIGNANT N EOPLASM OF ZARI COMPARISON: 06/22/2019, 06/18/2017, 06/21/2018 EXAM PARAMETERS: Standard craniocaudal and mediolateral oblique views of each breast recorded using digital acquisition. Read with the assistance of CAD. .[facility] - [employer] Version 9.2 LIMITATIONS: None. FINDINGS: No suspicious masses, suspicious calcifications or architectural distortion. No areas of c oncern. IMPRESSION: NEGATIVE MAMMOGRAM. BIRADS 1 BREAST DENSITY: b. There are scattered areas of fibroglandular density. BIRAD: ASSESSMENT: 1 NEGATIVE RECOMMENDATION: ROUTINE SCREENING COMMENT: The patient has been notified of the results by letter per MQSA requirements. Additional no tification policies are in place for contacting patient with suspicious or incomplete findings. Quality ID #[id number]: The [employer] recommends an annual screening mammogram for women aged 40 years or over. This facility utilizes a reminder system to ensure that all patients receive reminder letters, and/or direct phone calls for appointments. This includes reminders for routine scr eening mammograms, diagnostic mammograms, or other Breast Imaging Interventions when appropriate. Th is patient will be placed in the appropriate reminder system. TECHNICAL DOCUMENTATION: FINDING NUMBER: (1) ASSESSMENT: (1) JOB ID: [id number] 2010 [employer]- All Rights Reserved Reading location - IP/workstation name: [email or web address]
== END ==
LOC: WI 13:03
PROVIDERS: ATTEND Nurse Practitioner
DX: Z12.31 Encounter for screening mammogram for malignant neoplasm of breast (principal)
CPT/HCPCS: 77067